=== PATIENT | male | born 1945 | race Caucasian/White ===

== ENCOUNTER 2017-01-28 12:15 | Inpatient (IN) ==
[2017-01-28] MEDS ORDERED: Naloxone 0.4 MG/ML INJ IVP PRN (14:00)
[2017-01-28] MEDS ORDERED: Acetaminophen 325 MG TABLET PO PRN (14:00)
--- NOTE | 2017-01-28 14:27 | Internal Med History&Physical ---
Date of Encounter: 01/28/17 Time of Encounter: 14:15 Assessment and Plan (1) TIA (transient ischemic attack) Current visit: Yes Status: Suspected Patient with possible TIA. We will observe him overnight. We will get MRI. 2- D echocardiogram. Telemetry. Check lipid profile, TSH, HbA1c. Neurochecks. Moderate risk for complications Qualifiers: Transient cerebral ischemia type: other Qualified Code(s): G45.8 - Other transient cerebral ischemic attacks and related syndromes (2) Essential hypertension Current visit: Yes Status: Chronic Blood pressure is currently elevated. We will monitor and adjust antihypertensive regimen accordingly (3) Chronic kidney disease, stage 3 Current visit: Yes Status: Chronic Creatinine is at baseline. Follow renal function. Internal Medicine - H&P: HPI Chief complaint: Left upper extremity weakness Admitted From: Emergency Dept Plans for Post Hospital Care: Home History of present illness: Mr. Mosley is a 72 year old male patient who presented to the ER with complaints of left upper extremity weakness that began after he woke up this morning. He did not feel weak when he woke up but about half an hour later while he was sitting in a chair he tried to reach for the remote with his left hand when he felt very weak in his arm. He denies any numbness or tingling. No weakness anywhere else. He has never had similar kind of symptoms before. His symptoms started to improve by the time he got to the ER. However, he does not feel like he is back to his baseline strength yet. He does have a history of hypertension and chronic kidney disease Past Med Surg Social Fam HX - Past Medical History Attestation: Yes The following information was validated with the patient. Source: patient Medical history: hyperlipidemia, hypertension Psychiatric history: no psych history - Social History Smoking Status: Never smoker Smokeless Tobacco Status: No Alcohol use: none - Additional Family History Additional family history: Reviewed and found to be noncontributory at this time Internal Medicine - H&P: Meds Atorvastatin [Lipitor] 10 mg PO HS 01/28/17 [History] Ramipril [Altace] 5 mg PO DAILY 01/28/17 [History] Tamsulosin [Flomax] 0.4 mg PO DAILY 01/28/17 [History] Allergies No Known Allergies Allergy (Verified 01/28/17 10:41) All Systems PM: A 10-system review of systems was performed and is negative for pertinent findings except as documented above in the HPI. - Constitutional Constitutional: no chills, no fever(s), no night sweats - EENT Eyes: no change in vision, no discharge, no pain, no photophobia Ears: no ear discharge, no ear pain, no tinnitus Nose, mouth and throat: no dysphagia, no nasal discharge, no neck pain, no sore throat - Cardiovascular Cardiovascular ROS IM: no chest pain, no diaphoresis, no dyspnea, no lightheadedness, no palpitations, no syncope - Respiratory Respiratory: no cough, no dyspnea, no wheezing, no excessive phlegm production - Gastrointestinal Gastrointestinal: no abdominal pain, no diarrhea, no hematemesis, no hematochezia, no melena, no nausea, no vomiting - Musculoskeletal Musculoskeletal ROS IM: no numbness, no tingling - Integumentary Integumentary IM: no rash, no unusual bruising - Neurological Neurological ROS: focal weakness, no confusion, no convulsions, no numbness, no tingling, no tremor(s) - Hematologic/Lymphatic Hematologic/Lymphatic: no easy bruising - Constitutional Vitals: Temp Pulse Resp BP Pulse Ox 98.0 F 54 14 146/78 97 01/28/17 13:53 01/28/17 13:53 01/28/17 13:53 01/28/17 13:53 01/28/17 13:53 General appearance: Present: cooperative, A&O X 3, answers questions appropriately - Neck Neck exam general surgery: Present: supple, trachea midline. Absent: lymphadenopathy - Respiratory Respiratory exam: Present: CTAB. Absent: accessory muscle use, rales, rhonchi, wheezes - Cardiovascular Cardiovascular exam: Present: RRR, +S1, +S2. Absent: diastolic murmur, gallop, rubs, systolic murmur - GI/Abdominal GI/Abdominal exam: Present: normal bowel sounds, soft, no peritoneal signs. Absent: distended, tenderness - Extremities Exam Extremities exam: Present: warm, radial pulses palpable and symetrical. Absent : calf tenderness, cyanotic, pedal edema - Neurological Exam Neurological exam: Present: alert, CN II-XII intact, oriented X3, no focal deficits, strengths equal and symetr throughout. Absent: facial droop, speech deficit - Skin Skin exam: Present: dry, intact Internal Med - H&P Results - EKG Data -: EKG Interpreted by Myself EKG shows normal: sinus rhythm Rate: bradycardia - EKG Data EKG comments: 01/28/17 14:35 Patient has first-degree AV block - Impressions CT scan of the head does not show any acute stroke
[2017-01-28] MEDS: *HR* Heparin 5,000 UNIT/ML VIAL SQ SCH (17:24)
[2017-01-29 03:36] LABS: Basophils # 0.1 K/mcL (0.0-0.2); Eosinophils # 0.4 K/mcL (0.0-0.6); Eosinophils % 6.4 %; Hematocrit 41.2 % (37.5-50.1); Hemoglobin 13.8 g/dL (12.9-16.9); Immature Granulocytes % 0.2 % (0-4); Lymphocytes # 3.2 K/mcL (0.6-4.6); Lymphocytes % 50.5 %; Mean Corpuscular HGB Conc 33.5 g/dL (31.6-35.5); Mean Corpuscular Hemoglobin 30.5 pg (28.0-33.3); Mean Corpuscular Volume 90.9 fL (83.0-100.0); Mean Platelet Volume 12.2 fL (9.4-12.4); Monocytes # 0.6 K/mcL (0.0-1.3); Monocytes % 9.9 %; Platelet Count 171 K/mcL (140-400); Red Blood Count 4.53 M/mcL (4.19-5.50)
[2017-01-29 03:39] LABS: Hemoglobin A1C 6.9 %
[2017-01-29 03:46] LABS: Calcium 8.8 mg/dL (8.6-10.8); Potassium 4.1 mEq/L (3.5-4.5)
[2017-01-29 04:09] LABS: Thyroid Stimulating Hormone 7.243 mcIU/mL (0.350-4.840)
[2017-01-29] MEDS: *HR* Heparin 5,000 UNIT/ML VIAL SQ SCH ×2 (05:49→17:24)
[2017-01-29] MEDS ORDERED: Aspirin Enteric Coated 81 MG Tablet PO SCH (09:00)
--- NOTE | 2017-01-29 11:46 | Neurology - Consult Note ---
<Ben Pruitt - Last Filed: 01/29/17 13:22> Date of Encounter: 01/29/17 Time of Encounter: 11:46 Assessment and Plan (1) TIA (transient ischemic attack) Current Visit: Yes Status: Acute Patient complains of left arm weakness 1 day ago showing mandaeism today with no noticeable deficits at time of exam. Possibility for stroke versus TIA. Plan for MR head and cervical without contrast. Recommendations to follow once imaging is complete History of Present Illness Chief complaint: Left arm weakness and instability HPI: Mr. Mosley is a 72 year old male with a past medical history for hypertension hyperlipidemia complaints of left arm weakness 1 day. Patient states that he woke up without any symptoms 1 day ago in the a.m. and 15 minutes later he noticed some difficulty trying to stabilize his left arm to strip picker the remote control to watch TV. Patient denies any pain in the extremity or any other focal neurological deficits. Patient denies any weakness in maintenance scheduler strength. Patient states that 3 days ago he was working in his barn and doing a lot of overhead cleaning and noticed some soreness across his upper trapezius muscles and some neck muscle stiffness but no pain in his neck or shooting pains down his arms. Denies any numbness in his extremities. Patient seen and examined at bedside today and states that he has improvement of his symptoms but would experience a slight weakness stemming from his deltoid area intermittently. Patient denies pain today as well. Past Med Surg Social Fam HX - Past Medical History Attestation: Yes The following information was validated with the patient. Source: patient Medical history: hyperlipidemia, hypertension Psychiatric history: no psych history - Social History Smoking Status: Never smoker Smokeless Tobacco Status: No Alcohol use: none Drug use: none - Family History Father Hx Family Cancer: Yes (prostate cancer) Medications and Allergies Atorvastatin [Lipitor] 10 mg PO HS 01/28/17 [History] Multivitamin [Multi-Day Vitamins] 1 each PO DAILY 01/28/17 [History] Ramipril [Altace] 5 mg PO DAILY 01/28/17 [History] Tamsulosin [Flomax] 0.4 mg PO DAILY 01/28/17 [History] Allergies No Known Allergies Allergy (Verified 01/28/17 10:41) All Systems: A 10-system review of systems was performed and is negative for pertinent findings except as documented above in the HPI. - Constitutional Constitutional ROS IM: as per HPI - Nose, Mouth, Throat Nose, mouth and throat: headache(s), no abnormal hearing, no dizziness - Cardiovascular Cardiovascular ROS IM: no chest pain, no diaphoresis, no dyspnea, no edema, no radiating jaw, neck or arm pain, no lightheadedness, no palpitations, no radiating pain - Respiratory Respiratory IM: no cough, no dyspnea, no wheezing, no chest congestion - Gastrointestinal Gastrointestinal: no abdominal pain, no change in bowel habits, no diarrhea, no nausea, no vomiting - Musculoskeletal Musculoskeletal ROS IM: no abnormal gait, no muscle cramps, no myalgias, no neck pain, no numbness, no radiating pain into limb, no stiffness, no tingling - Integumentary Integumentary IM: no change in pigmentation, no rash, no unusual bruising - Neurological Neurological ROS: abnormal movements, headache(s), lack of coordination, no abnormal gait, no abnormal hearing, no abnormal speech, no behavioral changes, no burning sensations, no disequilibrium, no dizziness, no focal weakness, no frequent falls, no loss of vision, no numbness, no paresthesias, no radicular pain, no restless legs, no sensory deficit, no syncope, no tingling, no tremor(s ), no vertigo, no weakness Physical Examination - Vital Signs Vital Signs: Initial Vital Signs Temp Pulse Resp BP Pulse Ox 98.0 F 54 14 146/78 97 01/28/17 13:53 01/28/17 13:53 01/28/17 13:53 01/28/17 13:53 01/28/17 13:53 - Constitutional General appearance: comfortable - Neurologic Sensorimotor examination: intact Motor examination - right side: 5: deltoids, biceps, triceps, wrist flexion, wrist extension, maintenance scheduler, hip flexors, tibialis Anterior, quadriceps, toe extension (EHL), plantarflexion Motor examination - left side: 5/5: deltoids, biceps, triceps, wrist flexion, wrist extension, hip flexors, maintenance scheduler, quadriceps, tibialis Anterior, toe extension (EHL), plantarflexion Detailed sensory examination: intact, light touch Reflexes: Biceps: 2+, Triceps: 2+, Brachioradialis: 2+, Patella: 2+, Achilles: 2 + Mental Status Examination: awake, alert, oriented to person, oriented to place, oriented to time, follows commands appropriately, answers questions appropriately, no agnosia, no aphasia, no aproxia Cranial nerve examination: PERRL, EOMI, visual macias intact, corneal reflexes brisk symmetrically, sensory to face intact, mastication intact, no facial asymmetry is present, no dysarthria, hearing is intact symmetrically, soft palate elevates bilaterally upon phonation, gag reflex intact, flexes SCM and trapezius muscles symmetrically with full power, tongue protrudes midline, no atrophy or facial fasiculations present Cerebellar examination: no dysmetria, performs finger to nose and heel to dyer symmetrically without ataxia, no gait ataxia, no truncal ataxia, no difficulty with rapid alternating movements Results - Laboratory Findings CBC and BMP: 01/29/17 02:33 01/29/17 02:33 Abnormal lab findings: Abnormal lab results Creatinine 1.50 mg/dL (0.72-1.25) H 01/29/17 02:33 Est GFR ( Amer) 56 (> 60) L 01/29/17 02:33 Est GFR (Non-Af Amer) 46 (> 60) L 01/29/17 02:33 Glucose 139 mg/dL (70-99) H 01/29/17 02:33 Hemoglobin A1c 6.9 % (-5.6) H 01/29/17 02:33 Triglycerides 211 mg/dL (< 150) H 01/29/17 02:33 VLDL Cholesterol, Calc 42 mg/dL (< 31) H 01/29/17 02:33 TSH 7.243 mcIU/mL (0.350-4.840) H 01/29/17 02:33 - Diagnostic Findings EKG: image reviewed Additional findings: Echocardiogram taken today shows a LVEF of 60% Consult Discharge Plan - Plan Referrals: Yohannes Miranda MD [Primary Care Provider] - <Ayan Lazo - Last Filed: 01/29/17 17:21> Date of Encounter: 01/29/17 History of Present Illness HPI: Mr. Mosley is a 72 year old male All Systems: A 10-system review of systems was performed and is negative for pertinent findings except as documented above in the HPI. Physical Examination - Vital Signs Vital Signs: Initial Vital Signs Temp Pulse Resp BP Pulse Ox 98.0 F 54 14 146/78 97 01/28/17 13:53 01/28/17 13:53 01/28/17 13:53 01/28/17 13:53 01/28/17 13:53 Results - Laboratory Findings CBC and BMP: 01/29/17 02:33 01/29/17 02:33 Abnormal lab findings: Abnormal lab results Creatinine 1.50 mg/dL (0.72-1.25) H 01/29/17 02:33 Est GFR ( Amer) 56 (> 60) L 01/29/17 02:33 Est GFR (Non-Af Amer) 46 (> 60) L 01/29/17 02:33 Glucose 139 mg/dL (70-99) H 01/29/17 02:33 Hemoglobin A1c 6.9 % (-5.6) H 01/29/17 02:33 Triglycerides 211 mg/dL (< 150) H 01/29/17 02:33 VLDL Cholesterol, Calc 42 mg/dL (< 31) H 01/29/17 02:33 TSH 7.243 mcIU/mL (0.350-4.840) H 01/29/17 02:33
--- NOTE | 2017-01-29 15:42 | Internal Med Progress Note ---
Date of Encounter: 01/29/17 Time of Encounter: 08:30 - Assessment and plan (1) CVA (cerebral vascular accident) Current Visit: Yes Status: Acute Assessment and plan: Patient reports feeling as if he could not control his left arm yesterday morning. Onset 8:45 AM. He says he is weak, complained of shoulder and neck stiffness, occipital headache like a tension headache. He said he had weakness in his left shoulder was able able to control where his arm went. He denies any injury or change in strength or sensation. As evaluated by neurology. They are following. Echocardiogram showed LVEF 60%, normal LV size and function. There is asymmetric hypertrophy of the basal septum. Mild LV diastolic dysfunction. Normal RV structure and function. No evidence pulmonary hypertension and no significant valvular dysfunction. Carotid showed nonstenotic plaque. Patient had MRI cervical spine. There are degenerative changes and mild spinal canal stenosis. Patient had head MRI that showed acute 3.1 x 2.5 cm infarct within the left cerebellar hemisphere. There is no acute intracranial hemorrhage. There are mild chronic small vessel ischemic changes. Spoke with Dr. Hatch upon receiving the results. We have started aspirin 325 mg by mouth daily. Neuro checks continue. Speech and swallow was done on arrival. CTA head and neck were ordered, however, cannot be done due to renal function. I am awaiting any further orders from Dr. Hatch. Patient will stay overnight and reassess in the morning. PT and OT will be consulted, as well. Qualifiers: CVA mechanism: unspecified Qualified Code(s): I63.9 - Cerebral infarction, unspecified (2) Essential hypertension Current Visit: Yes Status: Chronic Assessment and plan: Blood pressure is 150s/60s. We will continue to monitor. Permissive hypertension. (3) Chronic kidney disease, stage 3 Current Visit: Yes Status: Chronic Assessment and plan: GFR 40, creatinine 1.40. Continue to monitor labs and avoid nephrotoxins. Avoid NSAIDs. - Time Spent With Patient less than 15 minutes - Subjective Interval history: Patient reports onset of left arm weakness, upper shoulder and neck stiffness at 845 yesterday morning. He says he felt as if he could not control his left arm. Reports weakness in his left shoulder and arm without any injury. He says his headache felt like it occipital tension headache. He states that some of it was relieved with muscle massage. Patient has no deficits with strength. Patient denies any symptoms in lower extremities, denies headache, slurred speech, dizziness, or vision changes. His hand grasps and foot press/pull her strong and equal bilaterally. Facial movements are symmetrical. Bilateral arm and leg, including shoulder, movement against resistance is strong and equal. There is no nystagmus. Patient was seen by neurology. I made Dr. Hatch aware of the MR I brain immediately after I was given the results. CT head and neck were ordered, however, patient cannot have the test due to renal function. He has been started on aspirin 325 mg. Speech and swallow was done on admission. NIH scales are continuing. Notify Dr. Hatch that CTAs could not be done, I am waiting on further orders. Echo and carotids are finished a resulted. - Constitutional Vitals: Temp Pulse Resp BP Pulse Ox 97.8 F 59 16 151/82 95 01/29/17 10:53 01/29/17 10:53 01/29/17 10:53 01/29/17 10:53 01/29/17 10:53 General appearance: Present: cooperative, A&O X 3, pleasant, no acute distress, answers questions appropriately - Head Head exam: Present: normal inspection - Eye Eye exam: Present: EOMI, normal appearance, PERRL, conjuntiva pink. Absent: nystagmus - ENT ENT exam: Present: mucous membranes moist, normal exam - Neck Neck exam general surgery: Present: normal inspection. Absent: lymphadenopathy , tenderness - Respiratory Respiratory exam: Present: CTAB. Absent: rales, respiratory distress, rhonchi, stridor, wheezes - Cardiovascular Cardiovascular exam: Present: RRR, +S1, +S2. Absent: diastolic murmur, systolic murmur - GI/Abdominal GI/Abdominal exam: Present: normal bowel sounds, soft. Absent: hepatomegaly, tenderness - Extremities Exam Extremities exam: Present: normal inspection, warm, radial pulses palpable and symetrical. Absent: pedal edema, tenderness - Neurological Exam Neurological exam: Present: alert, normal gait, oriented X3, no focal deficits, strengths equal and symetr throughout. Absent: motor sensory deficit, pronater drift, facial droop, speech deficit Internal Medicine: Result - Labs CBC & Chem 7: 01/29/17 02:33 01/29/17 02:33 Labs: Short CBC 01/29/17 Range/Units 02:33 WBC 6.3 (4.3-11.1) K/mcL Hgb 13.8 (12.9-16.9) g/dL Hct 41.2 (37.5-50.1) % Plt Count 171 (140-400) K/mcL Neutrophils # 2.0 (1.6-8.9) K/mcL BMP 01/29/17 02:33 Sodium 139 Potassium 4.1 Chloride 104 Carbon Dioxide 26 BUN 19 Creatinine 1.50 H Glucose 139 H Calcium 8.8 - Impressions Impressions Brain MRI 01/28/17 14:03 IMPRESSION: 1. Acute 3.1 x 2.5 cm infarct within the left cerebellar hemisphere. 2. No acute intracranial hemorrhage. 3. Mild chronic small vessel ischemic changes. The findings were sent to the Radiology Results Communication [facility] at 2:40 pm on 01/29/2017to be communicated to a licensed caregiver. D/ / 01/29/2017 15:16:05 Huy King MD / justine Interpreting Provider: Huy King MD Cervical Spine MRI 01/29/17 13:32 IMPRESSION: 1. Motion partially degrades images limiting evaluation. 2. Degenerative changes of the cervical spine contribute to [id number] spinal canal stenosis at C3-C4 and C6-C7. Mild spinal canal stenosis at C2-C3, C4-C5 and C5-C6. 3. Degenerative changes contribute to multilevel neural foraminal narrowing as above. 4. Mild spondylolisthesis at C3-C4 C6-C7 and C7-T1. D/ / Yoel Miller MD / Yole Miller MD Interpreting Provider: Yoel Miller MD Consult Discharge Plan - Plan Referrals: Yohannes Miranda MD [Primary Care Provider] -
[2017-01-29] MEDS: Aspirin Enteric Coated 325 MG Tablet PO SCH (17:24)
[2017-01-30] MEDS: *HR* Heparin 5,000 UNIT/ML VIAL SQ SCH (06:13)
[2017-01-30 08:00] LABS: Calcium 9.3 mg/dL (8.6-10.8)
[2017-01-30 08:03] LABS: Potassium 4.8 mEq/L (3.5-4.5)
[2017-01-30] MEDS: Aspirin Enteric Coated 325 MG Tablet PO SCH (08:37)
[2017-01-30 09:05] LABS: Basophils # 0.1 K/mcL (0.0-0.2); Basophils % 0.7 %; Eosinophils # 0.3 K/mcL (0.0-0.6); Eosinophils % 4.7 %; Hematocrit 47.3 % (37.5-50.1); Immature Granulocytes % 0.1 % (0-4); Lymphocytes # 3.9 K/mcL (0.6-4.6); Lymphocytes % 55.9 %; Mean Corpuscular Hemoglobin 30.1 pg (28.0-33.3); Mean Corpuscular Volume 91.3 fL (83.0-100.0); Mean Platelet Volume 12.1 fL (9.4-12.4); Monocytes # 0.5 K/mcL (0.0-1.3); Neutrophils # 2.2 K/mcL (1.6-8.9); Platelet Count 206 K/mcL (140-400); Red Blood Count 5.18 M/mcL (4.19-5.50); Red Cell Distribution Width 13.2 % (11.5-14.5); Segmented Neutrophils % 31.6 %
[2017-01-30 09:37] LABS: Hemoglobin 15.6 g/dL (12.9-16.9)
[2017-01-30 10:06] LABS: Triiodothyronine (T3) Free 2.56 pg/mL (1.71-3.71)
[2017-01-30 10:54] VITALS: BP 110/56
--- NOTE | 2017-01-30 11:05 | Discharge Summary ---
Date of Encounter: 01/30/17 Time of Encounter: 10:15 - Discharge Diagnosis (1) CVA (cerebral vascular accident) Priority: Primary Status: Acute Comments: acute infarct noted to left cerebellum. Patient with continued LUE incoordination but continues with 5/5 band saw filer strength. He has issues reaching for objects, but declines therapy. He declined OT or PT consultations and stated he would get his therapy outpatient if he needs it. Will increase his statin dosage- currently Atorvastatin 10mg- will increase to 20mg. No on aspirin at home- started at this time on 325mg per Neuro recommendations. (2) New onset type 2 diabetes mellitus Priority: Primary Status: Acute Comments: A1C 6.9%. After a lengthy conversation with the patient, he would rather his PCP start him on diabetes medications. He is convinced that his BPH medication is causing his elevated glucose levels and would like to decrease the dose prior to starting his DM medications- will defer to his PCP. He was educated on a diabetes diet and on lifestyle modifications. (3) Subclinical hypothyroidism Priority: Primary Status: Acute Comments: elevated TSH, T3 and T4 normal- followup outpatient. (4) Essential hypertension Priority: Secondary Status: Chronic Comments: borderline hypertensive at times while admitted- normotensive at time of discharge. Patient checks his BP daily at home and states it is "always perfect." Recommend continue daily blood pressure checks at home, keep a log, and follow-up outpatient. (5) Chronic kidney disease, stage 3 Priority: Secondary Status: Chronic Comments: No prior lab values to determine chronicity however patient states that he has chronic kidney disease stage III. Remained stable while admitted. Follow-up outpatient. - Discharge Medications Prescriptions: Aspirin Enteric Coated [Aspirin EC] 325 mg PO DAILY #30 tablet. Atorvastatin Calcium [Lipitor] 20 mg PO HS #30 tablet Home Medications: Multivitamin [Multi-Day Vitamins] 1 each PO DAILY 01/28/17 [History] Ramipril [Altace] 5 mg PO DAILY 01/28/17 [History] Tamsulosin [Flomax] 0.4 mg PO DAILY 01/28/17 [History] Aspirin Enteric Coated [Aspirin EC] 325 mg PO DAILY #30 tablet. 01/30/17 [Rx] Atorvastatin Calcium [Lipitor] 20 mg PO HS #30 tablet 01/30/17 [Rx] Allergies/Adverse Reactions: Allergies No Known Allergies Allergy (Verified 01/28/17 10:41) Procedures/tests Complete & Pending: Procedures Performed prior 72 hours Category Date Time Status MR angio head wo con [MR] Routine MRI 01/29/17 16:43 Completed MR angio neck wo con [MR] Routine MRI 01/29/17 16:43 Completed MR cervical spine wo con [MR] Routine MRI 01/29/17 13:32 Completed MR head/brain wo con [MR] Routine MRI 01/28/17 14:03 Completed EV carotid duplex imaging BI Routine Y 01/29/17 14:03 Completed EV echocardiogram Routine Y 01/29/17 14:03 Completed Date of admission: 01/30/17 00:57 Primary care physician: Yohannes Miranda MD Consults: 01/29/17 11:29 Consult to Neurology [CONS] Routine Consulting Provider: Neurology [facility] Reason for Consult: L arm weakness. MRI pending. Admitted for TIA. No other symptoms. Time Notified: 11:30 Call Completed: Yes 01/29/17 15:50 Consult to Occupational Therapy [CONS] Routine Comment: Evaluate, develop and implement POC Reason for Consult: evaluation. CVA Consult to Physical Therapy [CONS] Routine Comment: Evaluate, develop and implement POC Reason for Consult: evaluation. CVA 01/29/17 15:54 Consult to [employer] [CONS] Routine Reason for SW Consult: + MRI PT/OT to see Discharging clinician: Courtney Van Anticipated date of discharge: 01/30/17 - Patient Status Disposition: Home, Self-Care Condition: Good Functional capacity at discharge: independent ambulation Overall status at discharge: patient is progressing back to baseline - Discharge Instructions Follow Up With: Yohannes Miranda MD [Primary Care Provider] - Additional Instructions: followup with primary care provider within 1-2 weeks - Diet and Activity Activity: increase activity as tolerated Diet: diabetic diet, low fat, low cholesterol, low salt diet Hospital course: Mr. Mosley is a 72 year old male with past medical history of hypertension, hyperlipidemia, chronic kidney disease stage III. Patient presented to the emergency department with chief complaint of left upper extremity weakness that began on the morning of presentation. Patient stating approximately half an hour after he woke up, he began to feel weakness in his left arm when he tried to reach for the remote, the weakness was pronounced. He denied any numbness or tingling. He denied other focal neurological weakness is present workup in the emergency department unremarkable other than a mild elevation in his blood pressure. Patient was admitted to the hospitalist service for further evaluation and management. Brain MRI revealing acute infarct to left cerebellar hemisphere. Cervical spine MRI revealing chronic degenerative changes. Head and neck MRI revealing slowed flow versus occlusion of proximal left vertebral artery. Neurology onboard and recommended continued statin and addition of full strength aspirin to his regimen. His statin dosage was increased. He was normotensive at time of discharge and his blood pressure medication was not adjusted. He states he checks his blood pressure daily at home and states it is always normal, recommend follow-up outpatient. TSH was elevated however T3 and T4 levels were normal. A1c 6.9% since he was diagnosed with new onset of type 2 diabetes. Had a lengthy discussion with him on initiating medications however the patient stated that he is convinced that is his Flomax and his statin that have caused increase in his glucose levels and he is not one to start any new medication and still he speaks to his primary care provider. He was educated on dietary and lifestyle changes. He was offered occupational and physical therapy evaluations but refused both of them. He continued to have a little bit of incoordination of his left upper extremity with purposeful movements, but his band saw filer strength was 5 over 5. He stated that he would speak with his primary care provider and have outpatient physical therapy if his primary care provider thought it was necessary. He he no other focal neurological weaknesses, no dysphagia, no difficulties with ambulation. He was discharged home in stable condition with close outpatient followup recommended. ITS Impressions Brain MRI 01/28/17 14:03 IMPRESSION: 1. Acute 3.1 x 2.5 cm infarct within the left cerebellar hemisphere. 2. No acute intracranial hemorrhage. 3. Mild chronic small vessel ischemic changes. The findings were sent to the [facility]iology [facility] at 2:40 pm on 01/29/2017to be communicated to a licensed caregiver. D/ / 01/29/2017 15:16:05 Huy King MD / justine Interpreting Provider: Huy King MD Cervical Spine MRI 01/29/17 13:32 IMPRESSION: 1. Motion partially degrades images limiting evaluation. 2. Degenerative changes of the cervical spine contribute to [id number] spinal canal stenosis at C3-C4 and C6-C7. Mild spinal canal stenosis at C2-C3, C4-C5 and C5-C6. 3. Degenerative changes contribute to multilevel neural foraminal narrowing as above. 4. Mild spondylolisthesis at C3-C4 C6-C7 and C7-T1. D/ / Yoel Miller MD / Yoel Miller MD Interpreting Provider: Yoel Miller MD Head MRA 01/29/17 16:43 IMPRESSION: Unremarkable MRA of the brain. The visualized portions of the left superior cerebellar artery are patent along the visualized portions. The infarct noted on the previous MRI was in the left superior cerebellar artery vascular distribution. D/ / 01/29/2017 22:55:50 Naveed Pedersen MD / [facility] Interpreting Provider: Naveed Pedersen MD Neck MRA 01/29/17 16:43 IMPRESSION: Slow flow versus occlusion of proximal left vertebral artery, limited by noncontrast examination. Distal left vertebral artery reconstitution. D/ / Ceci Dodd MD / Ceci Dodd MD Interpreting Provider: Ceci Dodd MD Echocardiogram impressions: LVEF 60%. Normal LV chamber size and function. Asymmetric hypertrophy of the basal septum. No LVOT obstruction observed. Mild left ventricular diastolic dysfunction. Normal right ventricular structure and function. No evidence of pulmonary hypertension. No significant valvular dysfunction. Negative agitated saline study for intracardiac shunt. - Time Spent with Patient Total time spent providing and/or coordinating discharge services: - Constitutional Vitals: Temp Pulse Resp BP Pulse Ox 97.5 F L 62 15 110/56 96 01/30/17 10:53 01/30/17 10:53 01/30/17 10:53 01/30/17 10:53 01/30/17 10:53 General appearance: Present: cooperative, A&O X 3, pleasant, no acute distress, answers questions appropriately - Head Head exam: Present: atraumatic, normocephalic - Eye Eye exam: Present: PERRL, conjuntiva pink, sclera anicteric Pupils: Present: PERRL - Neck Neck exam general surgery: Present: supple, trachea midline. Absent: lymphadenopathy - Respiratory Respiratory exam: Present: CTAB. Absent: accessory muscle use, rales, respiratory distress, rhonchi, wheezes - Cardiovascular Cardiovascular exam: Present: RRR, +S1, +S2. Absent: diastolic murmur, gallop, rubs, systolic murmur - GI/Abdominal GI/Abdominal exam: Present: normal bowel sounds, soft, no peritoneal signs. Absent: distended, tenderness - Extremities Exam Extremities exam: Present: warm, radial pulses palpable and symetrical. Absent : calf tenderness, cyanotic, pedal edema - Neurological Exam Neurological exam: Present: alert, CN II-XII intact, normal gait, oriented X3, no focal deficits, strengths equal and symetr throughout. Absent: pronater drift, facial droop, speech deficit - Expanded Neurological Exam Neurological exam expanded: Present: protecting the airway Patient oriented to: Present: person, place, time Speech: Present: fluid speech Cranial Nerves: EOM's intact PM: Normal, gag reflex PM: Normal Cerebellar function: finger to nose: Abnormal Left (uncoordinated with purposeful movements- intermittent) Neuro motor strength exam: LUE: 5, RUE: 5, LLE: 5, RLE: 5 Coma Scale Eye Opening: Spontaneous Coma Scale Motor Response: Obeys Commands Coma Scale Verbal Response: Oriented Coma Scale Total: 15 - Skin Skin exam: Present: dry, intact, normal color, warm
--- NOTE | 2017-01-30 19:30 | Carotid Imaging Report ---
Carotid Duplex Patient Name:Chandler Mosley Order Number:[id number] Procedure Date:01/29/2017 Date:5Age:72 yrs Gender:Male Location:[facility] Room #: 3B12 Cfo Controller:Radha Humphrey, RVT, RDCS Referring MD:Hunter Galarza MD fire lieutenant:Yohannes Miranda MD Reading MD:Orlando Wellington MD Primary Indications:TRANSIENT ISCHEMIC ATTACK Risk Factors Yes/No Hypertension Yes Anticoagulants Yes Hypercholesterolemia Yes Impressions: Findings: Bilateral carotid system has nonstenotic plaque. Findings Carotid Duplex: Right: The right proximal common carotid artery has a PSV of 68 cm/s and a EDV of 15 cm/s. The right mid common carotid artery has a PSV of 79 cm/s and a EDV of 20 cm/s. The right distal common carotid artery has a PSV of 61 cm/s and a EDV of 22 cm/s. There is nonstenotic plaque in the right bifurcation with a PSV of 48 cm/s and a EDV of 13 cm/s. The right proximal internal carotid artery has a PSV of 51 cm/s and a EDV of 17 cm/s. The right mid internal carotid artery has a PSV of 68 cm/s and a EDV of 27 cm/s. The right distal internal carotid artery has a PSV of 85 cm/s and a EDV of 32 cm/s. The right eca has a PSV of 88 cm/s and a EDV of 15 cm/s. The right vertebral artery has a PSV of 38 cm/s and a EDV of 14 cm/s. Left: The left proximal common carotid artery has a PSV of 83 cm/s and a EDV of 17 cm/s. The left mid common carotid artery has a PSV of 85 cm/s and a EDV of 23 cm/s. The left distal common carotid artery has a PSV of 64 cm/s and a EDV of 18 cm/s. There is nonstenotic plaque in the left bifurcation with a PSV of 53 cm/s and a EDV of 15 cm/s. The left proximal internal carotid artery has a PSV of 61 cm/s and a EDV of 20 cm/s. The left mid internal carotid artery has a PSV of 71 cm/s and a EDV of 24 cm/s. The left distal internal carotid artery has a PSV of 72 cm/s and a EDV of 20 cm/s. The left eca has a PSV of 76 cm/s and a EDV of 13 cm/s. The left vertebral artery has a PSV of 14 cm/s and a EDV of 7 cm/s. Prior Study: No prior study available for comparison. Carotid Results Right PSV EDV Assessment Proximal CCA 68 15 Normal Mid CCA 79 20 Normal Distal CCA 61 22 Normal Bifurcation 48 13 Non Stenotic Plaque Proximal ICA 51 17 Normal Mid ICA 68 27 Normal Distal ICA 85 32 Normal ECA 88 15 Normal Vertebral Artery 38 14 Normal Left PSV EDV Assessment Proximal CCA 83 17 Normal Mid CCA 85 23 Normal Distal CCA 64 18 Normal Bifurcation 53 15 Non Stenotic Plaque Proximal ICA 61 20 Normal Mid ICA 71 24 Normal Distal ICA 72 20 Normal ECA 76 13 Normal Vertebral Artery 14 7 Normal Ratio's Right ICA/CCA Ratio: 1.08 ICA/CCA Values: 85/79 Left ICA/CCA Ratio: 0.85 ICA/CCA Values: 72/85 Updated by Orlando Wellington MD on 01/30/2017 7:25:28 PM electronically signed on 01/30/2017 7:25:41 PM with status of Final
== END 2017-01-30 14:00 | disposition home or self-care (01) | DRG 66 ==
LOC: 3BNU → SUATTDRO 01-30 00:57
PROVIDERS: ADMIT Internal Medicine; ATTEND Nurse Practitioner Family